=== PATIENT | female | born 1955 | race African-American/Black ===

== ENCOUNTER 2016-08-13 08:51 | Observation (INO) ==
[2016-08-13] MEDS ORDERED: ENOXAPARIN 100 MG/ML SYRINGE SUBCUT STA (09:27)
[2016-08-13] MEDS ORDERED: ASPIRIN 325 MG TABLET PO STA (09:27)
[2016-08-13] MEDS ORDERED: NITROGLYCERIN SL 0.4 MG TABLET SL PRN (09:27)
--- NOTE | 2016-08-13 09:31 | EKG Report ---
Stationary ECG Study [facility] Test Date: 08/13/2016 9:27:37 AM Pat Name: PIPPA PEÑA Department: Room: Gender: F Personal Companion: : 1955 Requested by: Marino Juan Order Number: [id number] Reading MD: LESLIE HUTCHNIS Intervals [place] Rate: 62 P: 3 [place]: 127 QRS: 79 QRSD: 85 T: -28 QT: 423 QTc: 429 Interpretive Statements SINUS RHYTHM Electronically Signed On 08-14-16 09:18:11 CDT by LESLIE HUTCHINS [email or web address]
[2016-08-13 09:44] LABS: Basophils % 0.3 % (0.0-0.8); Hematocrit 35.9 VOL% (35.7-47.0); Hemoglobin 11.3 GM/DL (12.0-16.0); Immature Granulocytes % 0.3 %; Immature Granulocytes Absolute 0.01 #; Lymphocytes # 0.8 10*3/uL (1.4-4.0); Lymphocytes % 25.8 % (21.3-54.2); Mean Corpuscular HGB Conc 31.5 GM/DL (32-36); Mean Corpuscular Hemoglobin 28 PG (27-34); Mean Platelet Volume 11.5 FL (9.6-12.0); Monocytes # 0.4 10*3/uL (0.11-0.8); Monocytes % 12.4 % (1.7-12.7); Neutrophils # 1.8 10*3/uL (1.4-7.4); Neutrophils % 60.2 % (38.7-73.9); Platelet Count 148 T/CUMM (130-400); Red Blood Count 4.08 MC/CUMM (3.8-5.5); Red Cell Distribution Width 17.5 % (9.3-17.3); White Blood Count 2.9 T/CUMM (4-12)
--- NOTE | 2016-08-13 09:48 | XRay Report ---
XR chest 1V portable Indication: Chest pain. Chest one view: Comparison 05/08/2016. The heart size and mediastinal contour are normal. The lungs and pleural spaces are clear. Bones are unremarkable. Impression: Negative chest. PROCEDURE INTERPRETED AT [facility] DEPARTMENT OF RADIOLOGY Final Report Signed by: Stephen Ball M.D.
[2016-08-13] MEDS ORDERED: NITROGLYCERIN SL 0.4 MG TABLET SL ONE (09:53)
[2016-08-13] MEDS ORDERED: ENOXAPARIN 80 MG/0.8 ML SYRINGE SUBCUT ONE (09:53)
[2016-08-13] MEDS ORDERED: ASPIRIN 325 MG TABLET ONE (09:53)
[2016-08-13 10:12] LABS: Albumin 3.3 G/DL (3.4-5.0); Bilirubin,Total 0.5 MG/DL (0.2-1.0); Calcium 9.2 MG/DL (8.5-10.1); Magnesium 1.8 MG/DL (1.8-2.4); Osmolality,Calculated 279.8 MOS/KG (273-304); Potassium 3.6 MMOL/L (3.5-5.1); Total Protein 7.7 G/DL (6.4-8.3)
--- NOTE | 2016-08-13 10:20 | Emergency Department Note ---
Iza Mccracken Gwan, am scribing for, and in the presence of, Marino Umanzor MD 09:53. Noé Mccracken Phillip K, MD, personally performed the services described in this documentation, ascribed by Anel Couch in my presence, and it is both accurate and complete . Arrival - Arrival Chief Complaint: Chest Pain Stated Complaint: chest pain or dehydrated ED Nursing Triage Note: Pt c/o chest pain since yesterday denies SBO or nausea. Pt states she feels dehydrated and it feels like her "body is shutting down". Mode of Arrival: Ambulatory Limitations: No Limitations Source: Patient, Old Records Reviewed, RN Notes Reviewed Time Seen by Provider: 08/13/16 09:18 - History of Present Illness HPI Narrative: Pt is a 60 y/o female, with a hx of hiatal hernia and acid reflux, who presents to the ED with a c/o cheat pain with an onset yesterday. Patient stated that her pain has an onset last night while she was at rest. She describes her pain as aching and that it has the feeling of something coming down her throat. Due to the persistence of the pain, pt stated that she was prompted to report to the ED. Her associated sxs have been diaphoresis, SOB, worsening pain with exacerbation and palpation. Patient denies that this pain is similar to her previous chest pain, any fever, cough or having a PCP. Patient confirmed that she has a heart cath 7-8 years ago, that she had a kidney transplant 1 years ago. Pt has a PMHx of Chloecystectomy. Onset (ago): day(s) Consistency: constant Severity: moderate Allergies/Adverse Reactions: Allergies Allergy/AdvReac Type Severity Reaction Status Date / Time No Known Allergies Allergy Verified 05/27/16 17:36 Home Medications: Home Medications Medication Instructions Recorded Confirmed Type Carvedilol [Coreg] 3.125 mg PO BID 07/27/14 08/13/16 History Gabapentin Cap/Tab [Neurontin 100 mg PO BEDTIME 07/27/14 08/13/16 History Cap/Tab] Pantoprazole Tab [Protonix Tab] 40 mg PO BID 07/27/14 08/13/16 History Docusate Sodium 100 mg PO BID PRN 10/21/15 08/13/16 History Mycophenolate Mofetil Cap 750 mg PO BID 10/21/15 08/13/16 History [Cellcept] Tacrolimus [Prograf] 4 mg PO BID 10/21/15 08/13/16 History Insulin Glargine [Lantus] 25 unit SUBCUT BEDTIME 10/26/15 08/13/16 History Insulin Aspart [NovoLOG] See Protocol SUBCUT DAILY 11/06/15 08/13/16 History Sulfameth/Trimeth 400-80 Tab 1 tablet PO MOWEFR 11/06/15 08/13/16 History [Bactrim Tab] clonazePAM [Clonazepam] 2 mg PO BEDTIME PRN 05/27/16 08/13/16 History predniSONE TAB [PredniSONE] 10 mg PO DAILY 05/27/16 08/13/16 History Aspirin [Aspirin EC] 81 mg PO DAILY 08/13/16 08/13/16 History Leflunomide 40 mg PO DAILY 08/13/16 08/13/16 History Review of System - Review of System 12 point system: reviewed and no additional remarkable complaints except as stated - Review of System Constitutional: Present: as per HPI, diaphoresis. Absent: fever Eyes: Absent: discharge, pain Head/Ears/Nose/Throat: Absent: earache Respiratory: Present: as per HPI, other (shortness of breathe). Absent: cough Cardiovascular: Present: as per HPI, chest pain, palpitations Gastrointestinal: Absent: abdominal pain, nausea, vomiting, constipation Musculoskeletal: Absent: arm pain, back pain Medical,Surgical,& Family Hx - Medical History Cardio: History of: Hypertension, PVD Neurology: History of: Peripheral Neuropathy No history of: Seizures Endocrine: History of: Diabetes Mellitus (IDDM) Renal: History of: Renal Failure (Renal transplant June 2015), Renal Problems ( chronic renal failure, kidney transplant) Gastrointestinal: History of: Gastrointestinal Bleed, GI Problems (hiatal hernia , stricture) - Surgical History Cardiac Surgeries: Sugical HX of: Cardiac Catheterization Thoracic Surgeries: Surgical HX of;: Kidney (Renal Surgery) (right side kidney transplant) HEENT Surgeries: Patient denies: Tonsilectomy & Adenoidectomy Abdominal Surgeries: Surgical HX of: Cholecystectomy, Colonoscopy, EGD Patient denies: Appendectomy Reproductive Surgeries: Surgical HX of;: Dilation and Curettage, Hysterectomy Orthopedic Surgeries: Patient denies;: Orthopedic Surgery - Social History Smoking Status: Never smoker Exam Vital Signs: Vital Signs Temperature 96.9 F L 08/13/16 09:07 Pulse Rate 72 08/13/16 09:07 Respiratory Rate 16 08/13/16 09:07 Blood Pressure 144/75 08/13/16 09:07 O2 Sat by Pulse Oximetry 99 08/13/16 09:07 - General General appearance: alert, in no apparent distress - Head Head exam: Present: atraumatic, normocephalic - Eye Eye exam: Present: normal appearance, PERRL, EOMI - ENT ENT exam: Present: normal oropharynx, mucous membranes moist, TM's normal bilaterally, normal external ear exam - Neck Neck exam: Present: full ROM, trachea midline. Absent: tenderness - Chest Chest inspection: Present: symmetric chest wall rise. Absent: tenderness - Respiratory Respiratory exam: Present: normal lung sounds bilaterally. Absent: respiratory distress - Abdominal Exam Abdominal exam: Present: soft, normal bowel sounds. Absent: distention, tenderness - Extremities Exam Extremities exam: Present: full ROM. Absent: tenderness - Back Exam Back exam: Present: full ROM. Absent: tenderness - Neurological Exam Neurological exam: Present: alert, oriented X3, CN II-XII intact. Absent: motor sensory deficit - Psychiatric Psychiatric exam: Present: normal affect, normal mood - Skin Skin exam: Present: warm, dry, intact, normal color Course Course Narrative: Patient discussed with Dr. Chapman at 10:25 AM. He was admitted for further evaluation. Patient's pain was relieved with nitroglycerin sublingual. Patient does have changes on her EKG suggestive of ischemia. Results - Labs CBC & BMP: 08/13/16 09:21 08/13/16 09:21 Lab Results: I have reviewed the patients labs Labs: Laboratory Tests 08/13/16 09:21 WBC 2.9 L RBC 4.08 Hgb 11.3 L Hct 35.9 MCHC 31.5 L RDW 17.5 H Plt Count 148 Lymph # (Auto) 0.8 L Laboratory Tests 08/13/16 09:21 Sodium 137 Potassium 3.6 Chloride 105 Carbon Dioxide 25 BUN 21 H Creatinine 1.50 H Glucose 171 H Albumin 3.3 L Globulin 4.4 H Albumin/Globulin Ratio 0.7 L - EKG EKG results: interpreted by ERMD, sinus rhythm (Nonspecific ST-T changes.) - Diagnostic Findings Procedure: Chest x-ray: report reviewed by me (Negative chest x-ray. ) Disposition Clinical Impression: Chest pain, Unstable angina pectoris
[2016-08-13] MEDS ORDERED: MAGNESIUM SULF RIDER 4 GM in PREMIX 1 EACH IV PRN (11:32)
[2016-08-13] MEDS ORDERED: MAGNESIUM SULF RIDER 2 GM in PREMIX 1 EACH IV PRN ×2 (11:32→14:24)
[2016-08-13] MEDS ORDERED: ONDANSETRON 4 MG/2 ML VIAL IV PRN (11:32)
[2016-08-13] MEDS ORDERED: ZALEPLON 5 MG CAPSULE PO PRN (11:32)
[2016-08-13] MEDS ORDERED: DOCUSATE SODIUM 100 MG CAPSULE PO PRN (11:32)
[2016-08-13] MEDS ORDERED: ACETAMINOPHEN 325 MG TABLET PO PRN (11:32)
--- NOTE | 2016-08-13 11:32 | Cardiology History & Physical ---
Assessment and Plan - Time spent with patient Time spent with patient: Greater than 30 minutes (1) Chest pain Status: Acute Assessment and plan: Patient's chest pain has some typical and some atypical symptoms. She is currently without chest pain, heaviness and tightness. Troponin has been negative 1. EKG does reveal T-wave abnormality inferiorly. Chest x-ray is without any acute cardiopulmonary processes. Patient will be admitted to the telemetry unit. We will continue to cycle cardiac biomarkers and EKG. I will keep her n.p.o. at this time and further discuss with Dr. Chapman. Further plan and addendum to follow per Dr. Chapman. Current Visit: Yes (2) Hypertension Status: Chronic Assessment and plan: Patient's home medications have been reinitiated. Will further adjust as needed. Current Visit: Yes (3) Diabetes Status: Chronic Assessment and plan: Patient's home dose of Lantus has been reinitiated. -Accu-Cheks before meals and at bedtime -Sliding scale insulin, will further adjust as needed during her hospital stay. Current Visit: Yes (4) Status post kidney transplant Status: Acute Assessment and plan: Immunosuppressive medication regimen has been reinitiated. Current Visit: Yes History of Present Illness Chief complaint: Chest pain History of present illness: [employer] Sales Representative: Dr. Cummins PCP: Dr. Bustamante Manager Filter: Dr. Galdamez Cardiology H&P: Chest pain Ms. Macias is a 60 year old female who is routinely followed by Dr. Cummins. Patient presented to the ER today with complaint of chest pain. She has cardiac risk factors significant for diabetes, hypertension, hyperlipidemia and family history of coronary artery disease (mom had ND around age 70). She has a past medical history of chronic renal failure (patient had a kidney transplant June 2015), aortic sclerosis, GERD, esophageal stricture (was last dilated October 2015) and peripheral neuropathy. Patient confirms that she is a lifetime non-smoker and nondrinker. She underwent left heart catheterization December 2007. At that time, she was noted to have normal ventricular function with ejection fraction of 55%. LAD, circumflex and diagonals were noted to have mild irregularities. She had a normal exercise Cardiolite stress test January 27, 2015. Ejection fraction at that time was noted to be 62%. Patient last saw Dr. Cummins in the cardiology clinic in October 2015. Patient was in her usual state of health until yesterday afternoon when she began experiencing intermittent chest heaviness while sitting in her chair. This radiated to her back. This is accompanied by diaphoresis and shortness of breath. She is unable to identify any specific aggravating or alleviating factors. She reports that the heaviness seemed to go away on its own. Yesterday, she experienced a burning sensation located in the middle portion of her chest while walking. This lasted approximately 1 hour and was made better with rest. She tells me that this was the first time she had experienced any chest discomfort while exercising. However, she has noticed over the past couple of weeks that she tires out more easily and requires more rest breaks while exercising. She specifically confirms a change in her breathing pattern and that she seems to be more short of breath with exertion. She tells me that walking to and from her mailbox requires her to walk uphill. She does not experience any chest discomfort while walking uphill. However, she does confirm easy fatigability and dyspnea on exertion. This morning, she experienced another episode of chest heaviness while getting ready. At this point, she felt that it was necessary to seek medical attention. She presented to the emergency department and received nitroglycerin. She reports that her chest heaviness went away after receiving nitroglycerin. Patient has been admitted under cardiology service and will be housed on the telemetry unit. Patient was seen and examined in the emergency department. She is currently without chest pain, heaviness and tightness. Troponin has been negative 1. EKG does reveal T-wave abnormality inferiorly. Chest x-ray does not reveal any acute cardiopulmonary processes. On exam, her chest pain is not reproducible to palpation. Patient will be admitted to the telemetry unit. We will continue to cycle cardiac biomarkers and EKG. We will keep her n.p.o. at this time and further discuss with Dr. Chapman. Further plan and addendum to follow per Dr. Chapman. Home Medications Medication Instructions Recorded Confirmed Type Carvedilol [Coreg] 3.125 mg PO BID 07/27/14 08/13/16 History Gabapentin Cap/Tab [Neurontin 100 mg PO BEDTIME 07/27/14 08/13/16 History Cap/Tab] Pantoprazole Tab [Protonix Tab] 40 mg PO BID 07/27/14 08/13/16 History Docusate Sodium 100 mg PO BID PRN 10/21/15 08/13/16 History Mycophenolate Mofetil Cap 750 mg PO BID 10/21/15 08/13/16 History [Cellcept] Tacrolimus [Prograf] 4 mg PO BID 10/21/15 08/13/16 History Insulin Glargine [Lantus] 25 unit SUBCUT BEDTIME 10/26/15 08/13/16 History Insulin Aspart [NovoLOG] See Protocol SUBCUT DAILY 11/06/15 08/13/16 History Sulfameth/Trimeth 400-80 Tab 1 tablet PO MOWEFR 11/06/15 08/13/16 History [Bactrim Tab] clonazePAM [Clonazepam] 2 mg PO BEDTIME PRN 05/27/16 08/13/16 History predniSONE TAB [PredniSONE] 10 mg PO DAILY 05/27/16 08/13/16 History Aspirin [Aspirin EC] 81 mg PO DAILY 08/13/16 08/13/16 History Leflunomide 40 mg PO DAILY 08/13/16 08/13/16 History Allergies Allergy/AdvReac Type Severity Reaction Status Date / Time No Known Allergies Allergy Verified 05/27/16 17:36 - Constitutional Constitutional: Present: fatigue. Absent: chills, fever(s), lethargy, malaise, weakness, weight gain, weight loss - Cardiovascular Cardiovascular: Present: as per HPI, chest pain at rest, chest pain with activity, diaphoresis, dyspnea on exertion. Absent: claudication, edema, lightheadedness, orthopnea, palpitations, PND - Respiratory Respiratory: Present: dyspnea on exertion. Absent: wheezing, pain on inspiration, change in phlegm color - Gastrointestinal Gastrointestinal: Absent: abdominal pain, change in bowel habits, constipation, diarrhea, hematemesis, hematochezia, loose stools, melena, nausea, vomiting - Neurological Neurological: Absent: abnormal gait, abnormal speech, behavioral changes, dizziness, headache(s), syncope - Hematologic/Lymphatic Hematologic/Lymphatic: Absent: easy bleeding, easy bruising, lymphadenopathy Medical,Surgical,& Family Hx - Medical History Cardio: History of: Hypertension Neurology: History of: Peripheral Neuropathy No history of: Seizures Endocrine: History of: Diabetes Mellitus (IDDM) Renal: History of: Renal Failure (Renal transplant June 2015), Renal Problems ( chronic renal failure, kidney transplant) Gastrointestinal: History of: GERD, Gastrointestinal Bleed, GI Problems (hiatal hernia, stricture) - Surgical History Cardiac Surgeries: Sugical HX of: Cardiac Catheterization Thoracic Surgeries: Surgical HX of;: Kidney (Renal Surgery) (right side kidney transplant) HEENT Surgeries: Patient denies: Tonsilectomy & Adenoidectomy Abdominal Surgeries: Surgical HX of: Cholecystectomy, Colonoscopy, EGD Patient denies: Appendectomy Reproductive Surgeries: Surgical HX of;: Hysterectomy Orthopedic Surgeries: Patient denies;: Orthopedic Surgery - Family History Family History: Reports;: Family Heart Disease - Social History Smoking Status: Never smoker Frequency of Alcohol Use: None Type of Drug Use: None Cardiology Physical Exam - Constitutional Vitals: Vital Signs Temp Pulse Resp BP Pulse Ox 96.9 F L 72 16 144/75 99 08/13/16 09:07 08/13/16 09:07 08/13/16 09:07 08/13/16 09:07 08/13/16 09:07 Intake and Output 08/12/16 08/13/16 08/13/16 22:59 06:59 14:59 Other: Weight 162 lb Patient Weight 08/14/16 06:59 Weight 162 lb General appearance: normal weight, no acute distress - Head Head exam: Present: normal inspection, normocephalic, atraumatic - Neck Neck exam: Present: normal inspection. Absent: lymphadenopathy, tenderness - Respiratory Respiratory exam: Present: clear to auscultation bilaterally. Absent: accessory muscle use, chest wall tenderness, rales, rhonchi, stridor, wheezes - Cardiovascular Cardiovascular exam: Present: regular rate and rhythm. Absent: gallop, rubs, systolic murmur - GI/Abdominal GI/Abdominal exam: Present: normal bowel sounds, soft. Absent: distended, firm , mass, tenderness - Extremities Exam Extremities exam: Present: normal inspection, normal capillary refill, other ( Normal upper and lower extremity pulses). Absent: calf tenderness, edema - Back Exam Back exam: Present: normal inspection - Neurological Exam Neurological exam: Present: alert, oriented X3, normal gait - Psychiatric Psychiatric exam: Present: normal affect, normal mood - Skin Skin exam: Present: normal color, warm, dry. Absent: cyanosis Result/EKG - Labs CBC & BMP: 08/13/16 09:21 08/13/16 09:21 Lab Results: I have reviewed the past 24 hour labs Labs: Laboratory Results - last 24 hr 08/13/16 08/13/16 08/13/16 09:21 09:21 09:21 WBC RBC Hgb Hct MCV MCH MCHC RDW Plt Count MPV Neut % (Auto) Lymph % (Auto) [place] % (Auto) Eos % (Auto) Baso % (Auto) Neut # (Auto) Lymph # (Auto) [place] # (Auto) Eos # (Auto) Baso # (Auto) Immature Gran % Nucleated RBC % Immature Gran # Nucleated RBCs # Sodium 137 Potassium 3.6 Chloride 105 Carbon Dioxide 25 Anion Gap 10.6 BUN 21 H Creatinine 1.50 H GFR Calculation 46 BUN/Creatinine Ratio 14.00 Glucose 171 H Calculated Osmolality 279.8 Calcium 9.2 Magnesium 1.8 Total Bilirubin 0.50 AST 36 ALT 36 Alkaline Phosphatase 77 Troponin I 0.018 B-Natriuretic Peptide 150 H Total Protein 7.7 Albumin 3.3 L Globulin 4.4 H Albumin/Globulin Ratio 0.7 L 08/13/16 09:21 WBC 2.9 L RBC 4.08 Hgb 11.3 L Hct 35.9 MCV 88.0 MCH 28 MCHC 31.5 L RDW 17.5 H Plt Count 148 MPV 11.5 Neut % (Auto) 60.2 Lymph % (Auto) 25.8 [place] % (Auto) 12.4 Eos % (Auto) 1.0 Baso % (Auto) 0.3 Neut # (Auto) 1.8 Lymph # (Auto) 0.8 L [place] # (Auto) 0.4 Eos # (Auto) 0.0 Baso # (Auto) 0.0 Immature Gran % 0.3 Nucleated RBC % 0.0 Immature Gran # 0.01 Nucleated RBCs # 0.00 Sodium Potassium Chloride Carbon Dioxide Anion Gap BUN Creatinine GFR Calculation BUN/Creatinine Ratio Glucose Calculated Osmolality Calcium Magnesium Total Bilirubin AST ALT Alkaline Phosphatase Troponin I B-Natriuretic Peptide Total Protein Albumin Globulin Albumin/Globulin Ratio
[2016-08-13] MEDS ORDERED: PANTOPRAZOLE 40 MG TABLET PO SCH (12:00)
[2016-08-13] MEDS ORDERED: SULFAMETHOX/TRIMETHOPRIM 400-80 MG TABLET PO SCH (12:00)
[2016-08-13] MEDS ORDERED: ENOXAPARIN 40 MG/0.4 ML SYRINGE SUBCUT SCH (12:00)
[2016-08-13 12:25] LABS: Risk Ratio 2.29; VLDL CHOLESTEROL 31.6 MG/DL
[2016-08-13] MEDS ORDERED: POTASSIUM CHLORIDE RIDER 10 MEQ in PREMIX 1 EACH IV PRN (14:24)
[2016-08-13] MEDS ORDERED: DIAZEPAM 5 MG TABLET PO ONE (14:24)
[2016-08-13] MEDS ORDERED: diphenhydrAMINE CAP 25 MG CAPSULE PO ONE (14:24)
[2016-08-13] MEDS ORDERED: SODIUM CHLORIDE 0.45% 1,000 ML IV SCH (14:30)
[2016-08-13 14:38] LABS: Troponin I Only 0.017 NG/ML (0.00-0.045)
--- NOTE | 2016-08-13 14:55 | EKG Report ---
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
--- NOTE | 2016-08-13 15:03 | Event Note ---
At the patient's request I contacted her early head start director Dr. Dao at [facility] and discussed cardiac catheterization, given her history of renal transplant. I discussed the case with him this afternoon, and we are going to start Mucomyst, hydrate her before the procedure, and he wants us to hold her Prograf tonight and tomorrow. We will try to minimize her contrast exposure and in doing these things, I think the risk to her kidney is low.
[2016-08-13 16:05] LABS: PT Patient Result 10.6 SECS
[2016-08-13] MEDS: LEFLUNOMIDE 10 MG TABLET PO SCH (17:06)
[2016-08-13] MEDS: INSULIN REGULAR 100 UNIT/ML SUBCUT SCH ×2 (17:36→22:50)
[2016-08-13] MEDS ORDERED: clonazePAM 0.5 MG TABLET PO PRN (21:00)
[2016-08-13] MEDS ORDERED: TACROLIMUS 0.5 MG CAPSULE PO SCH (21:00)
[2016-08-13] MEDS ORDERED: GABAPENTIN 100 MG CAPSULE PO SCH (21:00)
[2016-08-13] MEDS ORDERED: INSULIN GLARGINE 100 UNIT/ML SUBCUT SCH (21:00)
[2016-08-13 21:25] LABS: Troponin I Only < 0.015 NG/ML (0.00-0.045)
[2016-08-13] MEDS: PANTOPRAZOLE 40 MG TABLET PO SCH (22:18)
[2016-08-13] MEDS: CARVEDILOL 12.5 MG TABLET PO SCH (22:18)
[2016-08-13] MEDS: ACETYLCYSTEINE 600 MG CAPSULE PO SCH (22:18)
[2016-08-13] MEDS: MYCOPHENOLATE MOFETIL 250 MG CAPSULE PO SCH (22:47)
--- NOTE | 2016-08-14 06:28 | History and Physical Update ---
Sedation H&P Update - History and Physical H&P was reviewed, the patient examined and there: are no changes in the patients condition since last H&P was completed. - Dictation Physical: refer to H&P completed by admitting physician - Physical Exam Mental Status: alert and oriented Heart: regular rate and rhythm Lung: clear to auscultation Abdomen: within normal limits Vitals: within normal limits - Sedation Plan for Sedation: moderate ASA Class: IV Airway Assessment: Class II: Soft palate, uvula, fauces visible
[2016-08-14 06:46] LABS: Basophils % 0.6 % (0.0-0.8); Eosinophils % 1.2 % (0.00-10.9); Hematocrit 31.6 VOL% (35.7-47.0); Hemoglobin 10.2 GM/DL (12.0-16.0); Immature Granulocytes % 0.3 %; Immature Granulocytes Absolute 0.01 #; Lymphocytes # 0.9 10*3/uL (1.4-4.0); Lymphocytes % 27.4 % (21.3-54.2); Mean Corpuscular HGB Conc 32.3 GM/DL (32-36); Mean Corpuscular Hemoglobin 27 PG (27-34); Mean Corpuscular Volume 84.5 FL (87-102); Mean Platelet Volume 11.9 FL (9.6-12.0); Monocytes # 0.5 10*3/uL (0.11-0.8); Monocytes % 16.8 % (1.7-12.7); Neutrophils # 1.7 10*3/uL (1.4-7.4); Neutrophils % 53.7 % (38.7-73.9); Platelet Count 170 T/CUMM (130-400); Red Blood Count 3.74 MC/CUMM (3.8-5.5); Red Cell Distribution Width 17.4 % (9.3-17.3); White Blood Count 3.2 T/CUMM (4-12)
[2016-08-14 07:16] LABS: Eosinophils 1 % (0-10); Hypochromasia 1+; Lymphocytes 29 % (20-55); Ovalocytes Slight; Platelet Estimate Normal; Segmented Neutrophils 61 % (50-85); Total Cells Counted 100
[2016-08-14 07:18] LABS: Calcium 8.7 MG/DL (8.5-10.1); Magnesium 1.8 MG/DL (1.8-2.4); Osmolality,Calculated 284.3 MOS/KG (273-304); Potassium 3.9 MMOL/L (3.5-5.1)
[2016-08-14 07:27] LABS: Troponin I Only 0.017 NG/ML (0.00-0.045)
[2016-08-14] MEDS: INSULIN REGULAR 100 UNIT/ML SUBCUT SCH ×2 (07:35→12:05)
--- NOTE | 2016-08-14 07:59 | EKG Report ---
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
[2016-08-14] MEDS ORDERED: LIDOCAINE 1% 20 ML VIAL ONE (08:23)
[2016-08-14] MEDS ORDERED: HEPARIN/NACL 0.9% 2 UNITS/ML 1,000 ML IV ONE (08:23)
[2016-08-14] MEDS ORDERED: DIAZEPAM 5 MG TABLET ONE ×2 (08:34→08:45)
[2016-08-14] MEDS ORDERED: diphenhydrAMINE CAP 25 MG CAPSULE ONE ×2 (08:35→08:38)
[2016-08-14] MEDS: MYCOPHENOLATE MOFETIL 250 MG CAPSULE PO SCH (08:41)
[2016-08-14] MEDS: CARVEDILOL 12.5 MG TABLET PO SCH (08:42)
[2016-08-14] MEDS: PANTOPRAZOLE 40 MG TABLET PO SCH (08:43)
[2016-08-14] MEDS: ACETYLCYSTEINE 600 MG CAPSULE PO SCH (08:49)
[2016-08-14] MEDS ORDERED: predniSONE 10 MG TABLET PO SCH (09:00)
[2016-08-14] MEDS ORDERED: ENOXAPARIN 40 MG/0.4 ML SYRINGE SUBCUT SCH (09:00)
[2016-08-14] MEDS ORDERED: ASPIRIN EC 81 MG TABLET PO SCH (09:00)
[2016-08-14] MEDS ORDERED: MIDAZOLAM 2 MG/2 ML VIAL ONE (09:04)
[2016-08-14] MEDS ORDERED: fentaNYL 100 MCG/2 ML VIAL ONE (09:04)
[2016-08-14] MEDS ORDERED: NITROGLYCERIN DRIP 50 MG/250 ML BOTTLE IV ONE (09:07)
[2016-08-14] MEDS ORDERED: VERAPAMIL 5 MG/2 ML VIAL ONE (09:07)
[2016-08-14] MEDS ORDERED: ENOXAPARIN 60 MG/0.6 ML SYRINGE ONE (09:08)
--- NOTE | 2016-08-14 09:27 | Cardiac Catheterization ---
Date of Procedure:: 08/14/16 Pre-op Diagnosis: Exertional chest pain, typical with some atypical features Post-op diagnosis: other (No high-grade fixed epicardial stenosis but high- grade stenosis in secondary and tertiary level small vessels) Procedure: Procedures: 1. Left heart catheterization resting hemodynamics 2. Selective left and right coronary angiography After signed an informed consent was obtained, the patient was prepped and draped in standard fashion for right radial access. Time out was recorded. 0.5 mL of 1% lidocaine were infiltrated in the skin and subcutaneous tissue overlying the right radial artery and Seldinger technique was utilized with a Angiocath to obtain access to the right radial artery. A [facility] [facility] glide wire was then advanced into the midforearm under fluoroscopic guidance. The Angiocath was removed and a 6 [place] Terumo glide sheath was placed over the Glidewire. The sheath was aspirated and flushed and then 5 mg of verapamil and 200 g of nitroglycerin were given through the sheath. At this time an 035 J-wire was used to guide a [place] 6 Mosotho catheter into the central aorta across the aortic valve and into the ventricle. Pressure measurements and pullback measurements were obtained. The [place] catheter was then used to engage the left main coronary artery and multiple orthogonal views of the left system were obtained. The catheter then was torqued into the right coronary artery and orthogonal views of the right system were obtained. The catheter was then exchanged over the wire. The sheath was aspirated and flushed. The cream separator operator reviewed the films. And a TR band was placed over the glide sheath and used for hemostasis. Total contrast exposure 35 cc of Visipaque Total x-ray exposure: 2 min fluoroscopy time and 173 mGy air Kerma Findings: 1. EF no assessed 2. Hemodynamics LV: 120/0 EDP:5 Ao:112/53 3. Left main: Angiographically normal 4: Left anterior descending artery: There is mild luminal irregularity possibly 20% luminal encroachment in the mid LAD. There is diffuse disease in the terminal branches the LAD and some very small distal diagonals. 5: Left circumflex artery: This is a codominant vessel. There are no high- grade epicardial stenosis but diffuse heavily diseased vessels particularly near the AV groove. There is branch of the second obtuse marginal has high- grade stenosis however this is a very small vessel is less than half a millimeter 6: Right coronary artery: This is a codominant type vessel. It too has no high- grade epicardial stenosis with normal luminogram but very distal small vessel disease Assessment: 1. Normal resting hemodynamics 2. Diffuse small vessel disease 3. Mild mid LAD atheroma Plan: 1. Therapeutic lifestyle changes. 2. Medical management and aggressive lipid control Implants: None Anesthesia: minimal conscious sedation Surgeon / Physician: Elba Murray Bobbin Loose End Finder: none Estimated blood loss: none Specimens: none sent Condition: stable Disposition: floor - Medications / Follow-up
[2016-08-14] MEDS: LEFLUNOMIDE 10 MG TABLET PO SCH (12:21)
--- NOTE | 2016-08-14 13:35 | Discharge Summary ---
Hospital Course - Hospital Course Hospital Course: The patient is a 60-year-old female with a history of diabetes, hypertension, hyperlipidemia, and kidney transplant in June 2015. She came in to the hospital having some chest pain symptoms. Some of these were typical and others atypical. Initial cardiac injury were negative but she did have some nonspecific EKG changes. Ultimately Dr. Murray did cardiac catheterization for definitive coronary artery assessment. His results are as follows. Findings: 1. EF no assessed 2. Hemodynamics LV: 120/0 EDP:5 Ao:112/53 3. Left main: Angiographically normal 4: Left anterior descending artery: There is mild luminal irregularity possibly 20% luminal encroachment in the mid LAD. There is diffuse disease in the terminal branches the LAD and some very small distal diagonals. 5: Left circumflex artery: This is a codominant vessel. There are no high- grade epicardial stenosis but diffuse heavily diseased vessels particularly near the AV groove. There is branch of the second obtuse marginal has high- grade stenosis however this is a very small vessel is less than half a millimeter 6: Right coronary artery: This is a codominant type vessel. It too has no high- grade epicardial stenosis with normal luminogram but very distal small vessel disease Assessment: 1. Normal resting hemodynamics 2. Diffuse small vessel disease 3. Mild mid LAD atheroma Plan: 1. Therapeutic lifestyle changes. 2. Medical management and aggressive lipid control The patient had no problems or complications from the right radial cardiac catheterization access. We discussed the findings. At this point we are going to manage her with medical management and risk factor modification. She can be discharged home at this time. I will arrange follow-up with her with Dr. Cummins who has seen her in the past for preoperative cardiac assessment before her renal transplant. Specialty Discharge - Follow Up or Referrals Discharge Plan - Discharge Data Disposition: Disch To Home/Self Care - Discharge Medications New Atorvastatin [Lipitor] 20 mg PO BEDTIME #30 tablet Magnesium Chloride [Slow Mag] 64 mg PO BID #60 tablet Continue Carvedilol [Coreg] 3.125 mg PO BID W/MEALS Pantoprazole Tab [Protonix Tab] 40 mg PO BID Gabapentin Cap/Tab [Neurontin Cap/Tab] 100 mg PO BEDTIME Docusate Sodium 100 mg PO BID PRN PRN Reason: Constipation Mycophenolate Mofetil Cap [Cellcept] 750 mg PO BID Tacrolimus [Prograf] 4 mg PO BID Insulin Glargine [Lantus] 25 unit SUBCUT BEDTIME Sulfameth/Trimeth 400-80 Tab [Bactrim Tab] 1 tablet PO MOWEFR Insulin Aspart [NovoLOG] See Protocol SUBCUT DAILY clonazePAM [Clonazepam] 2 mg PO BEDTIME PRN PRN Reason: Sleep predniSONE TAB [PredniSONE] 10 mg PO DAILY Docusate Sodium Cap [Colace Cap] 100 mg PO BID PRN PRN Reason: Constipation Aspirin [Aspirin EC] 81 mg PO DAILY Leflunomide 40 mg PO DAILY [place]-3/Dha/Epa/Fish Oil [Fish Oil 1,000 mg Softgel] 1,000 mg PO BID - Follow Up or Referral Follow Up: Tang Cummins MD [Physician] - (2 weeks with CBC, CMP) - Forms/Instructions Instructions: Coronary Artery Disease (GEN), Left Heart Catheterization (DC), Heart Healthy Diet (GEN) Exam - Constitutional Vitals: Period Temp Pulse Resp BP Sys/Eisenberg Pulse Ox Last 24 Hr 96.8 F-98.0 F 61-78 18-20 104-195/69-107 90-99 Discharge Results Procedures and tests throughout hospitalization: Pending Orders 08/14/16 06:38 CL heart Routine 08/15/16 04:00 BMP w/ Mg [Basic Metabolic Panel w/Mg] IN AM 08/16/16 04:00 BMP w/ Mg [Basic Metabolic Panel w/Mg] IN AM 08/17/16 04:00 BMP w/ Mg [Basic Metabolic Panel w/Mg] IN AM Labs on day of discharge: Labs from last 24 hours 08/14/16 08/14/16 08/14/16 11:24 07:16 06:12 WBC RBC Hgb Hct MCV MCH MCHC RDW Plt Count MPV Neut % (Auto) Lymph % (Auto) [place] % (Auto) Eos % (Auto) Baso % (Auto) Neut # (Auto) Lymph # (Auto) [place] # (Auto) Eos # (Auto) Baso # (Auto) Total Counted Immature Gran % Nucleated RBC % Immature Gran # Segmented Neutrophils Lymphocytes Monocytes Eosinophils Nucleated RBCs # Platelet Estimate Hypochromasia Ovalocytes Morphology Comment INR PT Patient/Control Mix Sodium 141 Potassium 3.9 Chloride 109 H Carbon Dioxide 25 Anion Gap 10.9 BUN 20 H Creatinine 1.20 H GFR Calculation 60 BUN/Creatinine Ratio 16.00 Glucose 110 H POC Glucose 339 H 113 H Calculated Osmolality 284.3 Calcium 8.7 Magnesium 1.8 Total Creatine Kinase CK-MB (CK-2) Troponin I 08/14/16 08/14/16 08/13/16 06:12 06:12 20:55 WBC 3.2 L RBC 3.74 L Hgb 10.2 L Hct 31.6 L MCV 84.5 L MCH 27 MCHC 32.3 RDW 17.4 H Plt Count 170 MPV 11.9 Neut % (Auto) 53.7 Lymph % (Auto) 27.4 [place] % (Auto) 16.8 H Eos % (Auto) 1.2 Baso % (Auto) 0.6 Neut # (Auto) 1.7 Lymph # (Auto) 0.9 L [place] # (Auto) 0.5 Eos # (Auto) 0.0 Baso # (Auto) 0.0 Total Counted 100 Immature Gran % 0.3 Nucleated RBC % 0.0 Immature Gran # 0.01 Segmented Neutrophils 61 Lymphocytes 29 Monocytes 9 Eosinophils 1 Nucleated RBCs # 0.00 Platelet Estimate Normal Hypochromasia 1+ Ovalocytes Slight Morphology Comment INR PT Patient/Control Mix Sodium Potassium Chloride Carbon Dioxide Anion Gap BUN Creatinine GFR Calculation BUN/Creatinine Ratio Glucose POC Glucose 296 H Calculated Osmolality Calcium Magnesium Total Creatine Kinase 336 H CK-MB (CK-2) 2.8 Troponin I 0.017 08/13/16 08/13/16 08/13/16 19:52 15:52 15:36 WBC RBC Hgb Hct MCV MCH MCHC RDW Plt Count MPV Neut % (Auto) Lymph % (Auto) [place] % (Auto) Eos % (Auto) Baso % (Auto) Neut # (Auto) Lymph # (Auto) [place] # (Auto) Eos # (Auto) Baso # (Auto) Total Counted Immature Gran % Nucleated RBC % Immature Gran # Segmented Neutrophils Lymphocytes Monocytes Eosinophils Nucleated RBCs # Platelet Estimate Hypochromasia Ovalocytes Morphology Comment INR 1.0 PT Patient/Control Mix 10.6 Sodium Potassium Chloride Carbon Dioxide Anion Gap BUN Creatinine GFR Calculation BUN/Creatinine Ratio Glucose POC Glucose 126 H Calculated Osmolality Calcium Magnesium Total Creatine Kinase 379 H CK-MB (CK-2) 3.2 Troponin I < 0.015 08/13/16 08/13/16 15:36 13:14 WBC RBC Hgb Hct MCV MCH MCHC RDW Plt Count MPV Neut % (Auto) Lymph % (Auto) [place] % (Auto) Eos % (Auto) Baso % (Auto) Neut # (Auto) Lymph # (Auto) [place] # (Auto) Eos # (Auto) Baso # (Auto) Total Counted Immature Gran % Nucleated RBC % Immature Gran # Segmented Neutrophils Lymphocytes Monocytes Eosinophils Nucleated RBCs # Platelet Estimate Hypochromasia Ovalocytes Morphology Comment INR PT Patient/Control Mix Sodium Potassium Chloride Carbon Dioxide Anion Gap BUN Creatinine GFR Calculation BUN/Creatinine Ratio Glucose POC Glucose Calculated Osmolality Calcium Magnesium Total Creatine Kinase 434 H CK-MB (CK-2) 3.7 H Troponin I < 0.015 0.017 DS: Provider Date of admission: 08/13/16 11:32 Primary care physician: . No PCP Attending physician on admission: Shane Chapman MD Consults: 08/13/16 12:15 Consult to Pharmacy [CONS] Routine Reason for Pharmacy Consult: Adjust Meds Renal Funct 08/14/16 09:18 Consult to Cardiac Rehabilitation [CONS] Routine Reason for Cardiac Rehabilitation: Risk Factor Modification Discharging clinician: Shane Chapman MD
[2016-08-14 15:34] VITALS: BP 124/60
== END 2016-08-14 16:22 | disposition home or self-care (01) ==
LOC: N.EDINP 08:51 → N.ED 08:51 → N.TELES 12:01
PROVIDERS: ADMIT Internal Medicine Cardiovascular Disease; ATTEND Internal Medicine Cardiovascular Disease
PROC: CLCCHCL (ICD-10-PCS; 2016-08-14 09:45)